=== PATIENT | female | born 1960 | race Two or more races ===

== ENCOUNTER 2024-03-24 08:19 | Outpatient (CLI) | payer OTHER, SELFPAY ==
--- NOTE | ~2024-03-24 | US_ITS ---
EXAMINATION: US aorta DATE: 03/24/2024 10:23 CDT INDICATION: Family history of stroke. High cholesterol. TECHNIQUE: Grayscale, color Doppler, and pulsed Doppler images of the aorta and common iliac arteries were obtained. COMPARISON: None. FINDINGS: The proximal aorta measures 2 cm greatest sagittal dimension. The mid aorta measures 1.7 cm greatest sagittal dimension. The distal aorta measures 1.6 cm greatest sagittal dimension. The right common in ternal iliac artery measures 1.1 cm. The left common iliac artery measures 1 cm. IMPRESSION: 1. Normal caliber aorta without aneurysm. Reviewed, dictated and finalized at location B.
--- NOTE | ~2024-03-24 | US_ITS ---
US arterial ankle brachial ind INDICATION: Family history of stroke TECHNIQUE: Segmental pressures and plethysmographic and Doppler waveforms of the brachial and lower e xtremity arteries were obtained. COMPARISON: None. FINDINGS: Right and left brachial artery pressures of 88 mm Hg and 97 mm Hg, respectively, are concordant (norm al difference <= 30 mmHg). The right ankle-brachial index (LICHA) is 1.4 (normal >= 0.9-1.0). The right great toe-brachial index ( TBI) is 0.7 (normal >= 0.60). The left LICHA is 1.34. The left TBI is 0.59. IMPRESSION: 1. Normal bilateral ankle-brachial indices. Reviewed, dictated and finalized at location B.
--- NOTE | ~2024-03-24 | US_ITS ---
EXAMINATION: US carotid duplex BI DATE: 03/24/2024 10:24 INDICATION: Family history of stroke TECHNIQUE: Grayscale, color Doppler, and pulsed Doppler images of the cervical carotid arteries were obtained. The degree of vessel stenosis is placed in one of the following categories: normal, <50%, 5 0-69%, >=70% but less than near-occlusion, near-occlusion, or total occlusion. Note that percent sten osis relative to normal distal artery lumen diameter is indirectly measured from velocity measurement s as described by Baldemar, et al. Radiology 2003; 229:340-346. Notes: Normal: Peak systolic velocity <125 centimeters/sec and no plaque <50%. Peak systolic velocity <125 ( EDV <40; ICA/CCA PSV ratio <2.0; used these factors only a tandem lesions or low cardiac output or co ntralateral disease) 50-69 %: PSV 125-230 (EDV 40-100; ratio 2-4) >= 70% but less than near occlusion: PSV greater than 230 (EDV > 100; ratio> 4.0) Near Occlusion: PSV that is variable; markedly narrowed lumen Occlusion: Absent flow on color/spectral Doppler and no lumen on fermin scale. COMPARISON: None. FINDINGS: RIGHT: The right common carotid artery (CCA) peak systolic velocity (PSV) is 87 cm/s. The right internal car otid artery (ICA) PSV is 82 cm/s. The right ICA end-diastolic velocity (EDV) is 44 cm/s. The right IC A/CCA PSV ratio is 1.1. The external carotid artery (ECA) PSV is 73 cm/s. There is antegrade flow in the right vertebral artery. LEFT: The left CCA PSV is 98 cm/s. The left ICA PSV is 87 cm/s. The left ICA EDV is 39 cm/s. The left ICA/C CA PSV ratio is 1.3. The ECA PSV is 84 cm/s. There is antegrade flow in the left vertebral artery. IMPRESSION: 1. Less than 50% stenosis in the right internal carotid artery by sonographic criteria. 2. Less than 50% stenosis in the left internal carotid artery by sonographic criteria. Reviewed, dictated and finalized at location B. IMPRESSION: 1. Less than 50% stenosis in the right internal carotid artery by sonographic c carlita. 2. Less than 50% stenosis in the left internal carotid artery by sonographic cr priscilla.
== END 2024-03-24 08:20 | disposition home or self-care (01) ==
PROVIDERS: PCP Family Medicine; Visit Provider Nurse Practitioner Family
DX: E78.00 Pure hypercholesterolemia, unspecified (principal); Z82.3 Family history of stroke; I65.23 Occlusion and stenosis of bilateral carotid arteries
CPT/HCPCS: 76775; 93880; 93922

== ENCOUNTER 2025-09-08 10:48 | Outpatient (CLI) | payer BC, SELFPAY ==
--- NOTE | ~2025-09-08 | US_ITS ---
EXAMINATION: US pelvic complete INDICATION: Postmenopausal bleeding Comparison:No prior studies for comparison. TECHNIQUE: Multiple transabdominal and endovaginal sonographic images of the pelvis performed. FINDINGS: The uterus measures 7.8 x 3.3 x 4 cm. The endometrial complex measures 4 mm. The right ovary measures 2 x 1.1 x 1.7 cm and the left ovary is not visualized. There are small follicles in the right ovary ovary. Normal doppler signal in both ovaries. There is no free fluid in the pelvis. There are no abnormal masses seen on either side. IMPRESSION: 1. Unremarkable pelvic ultrasound. Reviewed, dictated and finalized at location O.
== END 2025-09-08 10:49 | disposition home or self-care (01) ==
PROVIDERS: PCP Family Medicine; Visit Provider Obstetrics & Gynecology Gynecology
DX: N95.0 Postmenopausal bleeding (principal)
CPT/HCPCS: 76856

== ENCOUNTER 2025-09-14 08:21 | Outpatient (CLI) | payer BC, SELFPAY ==
--- NOTE | ~2025-09-14 | DEXA_ITS ---
Bone Density Report Name: BIJU BALES Age: 64 Sex: Female Ethnicity: White Date of : 1960 Indication: osteopenia; Referring Provider: BESSY SAMS Study: Bone densitometry was performed. Exam Date: September 14, 2025 Accession number: [id number] Bone Density: Region BMD T-score Z-score Classification AP Spine(L1-L4) 0.880 -1.5 0.1 Osteopenia Femoral Neck (Left) 0.582 -2.4 -1.0 Osteopenia Total Hip (Left) 0.698 -2.0 -0.9 Osteopenia Femoral Neck (Right) 0.555 -2.6 -1.2 Osteoporosis Total Hip (Right) 0.678 -2.2 -1.1 Osteopenia Total Hip Mean 0.688 -2.1 -1.0 Osteopenia World Health Organization criteria for BMD impression classify patients as: Normal (T-score at or above -1.0), Osteopenia (T-score between -1.0 and -2.5), or Osteoporosis (T-score at or below -2.5). 10-year Fracture Risk: FRAX not reported because: Some T-score for Spine Total or Hip Total or Femoral Neck at or below -2.5 Previous Exams: -- Region Exam Age BMD T-score BMD Change BMD Change Date g/cm2 vs Baseline vs Previous -- AP Spine (L1-L4) 09/14/2025 64 0.880 -1.5 -18.7%# -12.2%# 04/25/2009 48 1.002 -0.4 -7.4%# 3.9%* 06/22/2006 45 0.965 -0.7 -10.9%# -10.9%# 07/03/2004 43 1.083 0.3 Total Hip(Left) 09/14/2025 64 0.698 -2.0 N/A -13.6%# 04/25/2009 48 0.808 -1.1 N/A -8.4%* 06/22/2006 45 0.882 -0.5 N/A N/A 07/03/2004 43 0.000 0.0 N/A N/A Total Hip(Right) 09/14/2025 64 0.678 -2.2 -21.1%# -13.4%# 04/25/2009 48 0.783 -1.3 -8.9%# -3.7%* 06/22/2006 45 0.813 -1.1 -5.4%# -5.4%# 07/03/2004 43 0.860 -0.7 -- *Denotes significance at 95% confidence level, LSC for AP Spine = 0.022 g/cm2, LSC for Total Hip = 0.027 g/cm2 # Denotes dissimilar scan types or analysis methods Clinical Information Provided by Patient: Has used the following medications: Fosamax (i.e. alendronate), Vitamin D, Calcium Patient maximum height was 61 Menopause Age: 50 Drinks caffeinated beverages Onset of menses at age 15 Number of children 1 Impression: The patient has osteoporosis, based on the Right Femoral Neck T-score. Unable to evaluate interval change due to the use of different scan modes. Discussion: INCREASED RISK OF FRACTURE. BONE DENSITY IS UNDESIRABLY LOW AT ONE OR MORE SKELETAL SITES, CONSISTENT WITH POSTMENOPAUSAL OSTEOPOROSIS. This patient's lowest T-score meets the World Health Organization's (WHO) criteria for osteoporosis at one or more sites (T-score -2.5 or below). In untreated patients, the risk of osteoporotic fracture increases approximately two-fold for each 1.0 SD decrease in T-score. Low bone density is not the only risk factor for fracture; also consider factors such as patient's age, frailty or poor health, risk of falling, risk of injury, previous osteoporotic fracture, family history of osteoporosis, cigarette smoking, low body weight, etc. Not everyone with low bone mineral density has osteoporosis; osteomalacia and other metabolic bone disorders should also be considered. Patients who have osteoporosis should be evaluated for specific diseases and conditions (secondary causes) that may cause or contribute to bone loss. The [place] [employer] (AACE) and National Osteoporosis Foundation (NOF) recommend pharmacologic intervention for all postmenopausal women whose T-score is in this range. The patient should follow a healthful lifestyle (good nutrition with adequate calcium and vitamin D, and appropriate weight-bearing exercise). Follow-Up: Consider a repeat BMD and Vertebral Fracture Assessment (VFA) exam in 2 years or sooner if medically necessary, to reassess this patient's status. Reported by: ARELI on 09/14/2025 8:42:00 AM. Reviewed, dictated and finalized at location A.
--- NOTE | ~2025-09-14 | MM_ITS ---
EXAMINATION: MM screening jose armando BI w fredrick HISTORY: Screening TECHNIQUE: Craniocaudal and mediolateral oblique 3-D tomosynthesis images were obtained and synthetic 2-D images were generated. CAD analysis was submitted and interpreted. COMPARISON: Comparison to multiple prior studies sequentially, with oldest reviewed study dated , 06/22/2006 BREAST PARENCHYMAL COMPOSITION: The breasts are extremely dense, which lowers the sensitivity of mammography. FINDINGS: There is no evidence of suspicious mass, calcification, or architectural distortion to suggest malignancy in either breast. IMPRESSION: 1. No mammographic evidence of malignancy. 2. Recommend routine screening mammography in one year. BI-RADS Category 1: Negative Reviewed, dictated and finalized at location B.
== END 2025-09-14 08:22 | disposition home or self-care (01) ==
LOC: MICIMG 08:22
PROVIDERS: Visit Provider Obstetrics & Gynecology Gynecology
DX: Z12.31 Encounter for screening mammogram for malignant neoplasm of breast (principal); Z78.0 Asymptomatic menopausal state; M85.88 Other specified disorders of bone density and structure, other site; M85.852 Other specified disorders of bone density and structure, left thigh; M85.851 Other specified disorders of bone density and structure, right thigh; M81.0 Age-related osteoporosis without current pathological fracture
CPT/HCPCS: 77063; 77067; 77080